=== PATIENT | female | born 1965 | race Caucasian/White ===

== ENCOUNTER → 2021-03-19 | Outpatient (CLI) | payer OTHER ==
[~2021-03-19] MED LIST: ALDACTONE25 MG PO; BACTRIM DS TAB1 EACH PO; BUPROPION XL150 MG PO; CLEOCIN HCL300 MG PO; NORCO 5-325 TA1 EACH PO; PRISTIQ50 MG PO; ZOFRAN ODT4 MG PO
== END ==
LOC: M.ULTRA 07:30
PROVIDERS: ATTEND Family Medicine
DX: K83.8 Other specified diseases of biliary tract (principal)

== ENCOUNTER → 2021-03-27 | Outpatient (CLI) | payer OTHER | LOC: M.MRI 07:54 | PROVIDERS: ATTEND Family Medicine | DX: K83.9 Disease of biliary tract, unspecified (principal); N28.89 Other specified disorders of kidney and ureter ==

== ENCOUNTER → 2021-04-09 | Outpatient (CLI) | payer OTHER | LOC: M.NUC 06:57 | PROVIDERS: ATTEND Family Medicine | DX: K83.5 Biliary cyst (principal); R10.11 Right upper quadrant pain ==

== ENCOUNTER → 2021-06-03 | Outpatient (CLI) | payer OTHER ==
[~2021-06-03] MED LIST changes: +ALPRAZOLAM 0.50.5 M1 PO; +CYMBALTA60 MG PO; +LAMOTRIGINE250 MG PO; +METFORMIN HCL500 M3 PO; +PERCOCET 5-3251 EACH PO; +QUETIAPINE FUM400 M1 PO; +VALSARTAN-HCTZ1 EACH PO
== END ==
LOC: M.PC 08:24
PROVIDERS: ATTEND Physical Medicine & Rehabilitation
DX: M25.78 Osteophyte, vertebrae (principal); M47.816 Spondylosis without myelopathy or radiculopathy, lumbar region; M53.3 Sacrococcygeal disorders, not elsewhere classified; M47.812 Spondylosis without myelopathy or radiculopathy, cervical region; M54.2 Cervicalgia; M54.51 Vertebrogenic low back pain